=== PATIENT | female | born 1985 | race Two or more races ===

== ENCOUNTER 2019-12-05 03:52 | Emergency (ER) | payer OTHER ==
[~2019-12-05] VITALS: Ht 162.6 cm; Wt 90.7 kg
[2019-12-05 03:59] VITALS: BP 136/75
[2019-12-05] MEDS ORDERED: LORAZEPAM 1 MG TABLET ONE (04:08)
--- NOTE | 2019-12-05 04:08 | NUR ---
PT CAME TO ER BED 2 C/O DRUG USE. PT STATES SHE TOOK AN UNKNOWN AMOUNT OF PSYCHEDELIC MUSHROOMS AND ALCOHOL. PT STATES SHE IS DIAGNOSED WITH BREAST CANCER AND SHE WANTED TO USE SHROOMS BEFORE GOING THROUGH CHEMO. DENIES SI/ HI. AAOX3. BREATHING EVENLY AND UNLABORED ON ROOM AIR.
[2019-12-05] MEDS ORDERED: LORAZEPAM 1 MG TABLET PO ONE (04:30)
== END 2019-12-05 06:29 | disposition home or self-care (01) ==
LOC: ER 03:55
DX: T62.0X1A Toxic effect of ingested mushrooms, accidental (unintentional), initial encounter (principal); F41.9 Anxiety disorder, unspecified; F19.10 Other psychoactive substance abuse, uncomplicated; J45.909 Unspecified asthma, uncomplicated; F10.10 Alcohol abuse, uncomplicated; Y90.9 Presence of alcohol in blood, level not specified; Z85.3 Personal history of malignant neoplasm of breast; Z90.10 Acquired absence of unspecified breast and nipple; Z88.5 Allergy status to narcotic agent; Y92.89 Other specified places as the place of occurrence of the external cause

== ENCOUNTER 2024-10-27 02:05 | Emergency (ER) | payer OTHER ==
[~2024-10-27] VITALS: Ht 162.6 cm; Wt 90.7 kg
[2024-10-27 02:21] VITALS: TEMP 98.3
[2024-10-27 04:50] LABS: BASOPHILS % (AUTO) 0.5 % (0.0-2.0); EOSINOPHILS # (AUTO) 0.2 K/uL (0.0-0.7); EOSINOPHILS % (AUTO) 2.1 % (0.0-6.0); HEMATOCRIT 40 % (33-45); HEMOGLOBIN 13.2 g/dL (11.5-14.8); LYMPHOCYTES # (AUTO) 2.5 K/uL (0.8-4.8); LYMPHOCYTES % (AUTO) 34.2 % (20.0-44.0); MEAN CORPUSCULAR HEMOGLOBIN 30 PG (26.0-33.0); MEAN CORPUSCULAR HGB CONC 33 g/dl (31.0-36.0); MEAN CORPUSCULAR VOLUME 91 fL (82-100); MONOCYTES # (AUTO) 0.4 K/uL (0.1-1.30); MONOCYTES % (AUTO) 5.4 % (2.0-12.0); NEUTROPHILS # (AUTO) 4.3 K/uL (1.8-8.9); NEUTROPHILS % (AUTO) 57.8 % (43.0-81.0); PLATELET COUNT (AUTO) 222 K/uL (150-450); RED BLOOD CELL COUNT(AUTO) 4.39 MIL/uL (4.0-5.2); WHITE BLOOD COUNT (AUTO) 7.4 K/uL (4.3-11.0)
[2024-10-27] MEDS: IV NS 0.9% 1,000 ML IV ONE ×2 (04:52→04:53)
[2024-10-27 05:05] LABS: CALCIUM, SERUM 8.3 mg/dL (8.5-10.1); CREATININE 0.6 mg/dL (0.6-1.3); POTASSIUM 3.9 mmol/L (3.5-5.1)
[2024-10-27 05:16] LABS: ALBUMIN 3.3 g/dL (3.4-5.0); TOTAL PROTEIN, SERUM 6.8 g/dL (6.4-8.2)
[2024-10-27 05:33] LABS: BILIRUBIN,TOTAL 0.1 mg/dL (0.2-1.0)
[2024-10-27 09:17] VITALS: BP 135/70; O2SAT 97
== END 2024-10-27 09:18 | disposition home or self-care (01) ==
LOC: ER 02:06
DX: F10.129 Alcohol abuse with intoxication, unspecified (principal); J45.909 Unspecified asthma, uncomplicated; Z88.5 Allergy status to narcotic agent; Z85.3 Personal history of malignant neoplasm of breast
CPT/HCPCS: 99283; 96360; 85025; 36415; 80053; 80320; J7030; G0480